=== PATIENT | male | born 1995 | race Caucasian/White ===

== ENCOUNTER 2019-01-27 10:02 | Emergency (ER) | payer OTHER ==
--- NOTE | 2019-01-27 10:44 | ED ---
General Adult HPI - General Chief complaint: Skin/Abscess/Foreign Body Stated complaint: Red/swelling Lt underarm Time Seen by Provider: 01/27/19 10:18 Source: patient Mode of arrival: ambulatory Limitations: no limitations - History of Present Illness Initial comments: Patient is a 23-year-old male presenting to emergency Department with a chief complaint of left arm. Infection. Patient reports it initially started off as a zit on his left armpit and has gradually progressed in size over the past 2 days. Patient reports he has developed tenderness to palpation and reports discharge. Patient reports erythema measuring approximately 3 cm x 4 cm. Patient reports he saw medical professional yesterday who prescribed him Bactrim. Patient is a very taken to doses of the Bactrim but reports the pain is not subsiding which is the primary reason he is here. Patient denies any fever, nausea or vomiting. - Related Data Previous Rx's Medication Instructions Recorded Cephalexin [Keflex] 500 mg PO Q6HR #40 cap 01/27/19 Allergies Allergy/AdvReac Type Severity Reaction Status Date / Time No Known Allergies Allergy Verified 01/27/19 10:38 Review of Systems ROS Statement: Those systems with pertinent positive or pertinent negative responses have been documented in the HPI. ROS Other: All systems not noted in ROS Statement are negative. Past Medical History Past Medical History: No Reported History History of Any Multi-Drug Resistant Organisms: None Reported Past Surgical History: No Surgical Hx Reported Past Psychological History: No Psychological Hx Reported Smoking Status: Current every day smoker Past Alcohol Use History: Occasional Past Drug Use History: None Reported General Exam Limitations: no limitations General appearance: alert, in no apparent distress Head exam: Present: atraumatic, normocephalic, normal inspection Eye exam: Present: normal appearance, PERRL, EOMI Pupils: Present: normal accommodation ENT exam: Present: normal exam, mucous membranes moist, normal external ear exam Neck exam: Present: normal inspection, full ROM Respiratory exam: Present: normal lung sounds bilaterally Cardiovascular Exam: Present: regular rate, normal rhythm, normal heart sounds GI/Abdominal exam: Present: soft, normal bowel sounds Extremities exam: Present: full ROM, normal capillary refill, other (+2 ulnar radial pulses.). Absent: normal inspection (3 cm x 5 cm induration at the left axilla but no fluctuance. 2 cm x 4 cm erythema. No discharge noted. Lesion appears warm to the touch.) Back exam: Present: normal inspection, full ROM Neurological exam: Present: alert, oriented X3 Psychiatric exam: Present: normal affect, normal mood Skin exam: Present: warm, intact, normal color Course Vital Signs 01/27/19 10:13 Temperature 98.1 F Pulse Rate 78 Respiratory 18 Rate Blood Pressure 127/84 O2 Sat by Pulse 97 Oximetry Medical Decision Making - Medical Decision Making patient is a 23-year-old male presents emergency department with a chief complaint of left armpit infection. I did not feel any fluctuance so no incision and drainage is warranted at this time. Patient has only taken 2 doses of the Bactrim so advised him to continue taking the medication. Keflex will also be added to the treatment plan. Patient was given Toradol in the ED. Karyn ent will be given a Tylenol 3 starter pack. Patient advised to follow-up with primary care. Strict return parameters were thoroughly discussed patient was understanding and agreeable. Case discussed with physician. Disposition Clinical Impression: Abscess of axilla, left Disposition: HOME SELF-CARE Condition: Stable Instructions (If sedation given, give patient instructions): Abscess (ED) Additional Instructions: Please take prescribed medication as directed. Please follow-up with primary care. Please return to emergency department if symptoms worsen. Alternate between Tylenol and ibuprofen for pain control. Prescriptions: Cephalexin [Keflex] 500 mg PO Q6HR #40 cap Is patient prescribed a controlled substance at d/c from ED?: No Referrals: Armand Monahan MD [Primary Care Provider] - 1-2 days Time of Disposition: 10:44
[2019-01-27] MEDS: ACET/COD 300 MG/30 MG STARTER PACK 6 TAB BTL PO STA ×2 (11:00→11:07)
[2019-01-27] MEDS: KETOROLAC 30 MG/ML 1 ML VIAL IM STA ×2 (11:07→11:17)
[2019-01-27 11:27] VITALS: BP 122/78; PULSE 76; RESP 12; TEMP 98.2
== END 2019-01-27 11:17 | disposition home or self-care (01) ==
LOC: EC 10:02
DX: L02.412 Cutaneous abscess of left axilla (principal); F17.200 Nicotine dependence, unspecified, uncomplicated
CPT/HCPCS: 99283; 96372; J1885

== ENCOUNTER 2019-01-29 00:07 | Emergency (ER) | payer OTHER ==
[2019-01-29] MEDS ORDERED: LIDOCAINE 1% INJ 10MG/ML (20 ML MDV) SQ ONE (01:25)
--- NOTE | 2019-01-29 02:10 | ED ---
General Adult HPI - General Chief complaint: Skin/Abscess/Foreign Body Stated complaint: Abscess on arm Time Seen by Provider: 01/29/19 00:58 Source: patient, RN notes reviewed Mode of arrival: ambulatory Limitations: no limitations - History of Present Illness Initial comments: 23-year-old male presents to the emergency department for a chief complaint of abscess in the left axilla. Patient states this started 5 days ago. States he was seen in the emergency department and given Keflex and Bactrim but it was not incised and drained at that time due to no fluctuance. Denies fevers or chills. States it seems to be getting somewhat better but is still very painful. He did try to apply Epsom salts earlier today but has not been doing warm compr esses otherwise. Patient has no other complaints at this time including shortness of breath, chest pain, abdominal pain, nausea or vomiting, headache, or visual changes. - Related Data Home Medications Medication Instructions Recorded Confirmed Sulfamethox-Tmp 800-160Mg [Bactrim 1 tab PO Q12HR 01/27/19 01/29/19 DS 800-160 mg] Previous Rx's Medication Instructions Recorded Acetaminophen Tab [Tylenol Tab] 500 mg PO Q4H #30 tablet 01/27/19 Cephalexin [Keflex] 500 mg PO Q6HR #40 cap 01/27/19 Ibuprofen [Motrin] 800 mg PO Q6HR #30 tab 01/27/19 Allergies Allergy/AdvReac Type Severity Reaction Status Date / Time No Known Allergies Allergy Verified 01/27/19 10:38 Review of Systems ROS Statement: Those systems with pertinent positive or pertinent negative responses have been documented in the HPI. ROS Other: All systems not noted in ROS Statement are negative. Past Medical History Past Medical History: No Reported History History of Any Multi-Drug Resistant Organisms: None Reported Past Surgical History: No Surgical Hx Reported Past Psychological History: No Psychological Hx Reported Smoking Status: Current every day smoker Past Alcohol Use History: Occasional Past Drug Use History: None Reported General Exam Limitations: no limitations General appearance: alert, in no apparent distress Head exam: Present: atraumatic, normocephalic, normal inspection Eye exam: Present: normal appearance, PERRL, EOMI. Absent: scleral icterus, conjunctival injection, periorbital swelling ENT exam: Present: normal exam, mucous membranes moist Neck exam: Present: normal inspection, full ROM. Absent: tenderness, meningismus, lymphadenopathy Respiratory exam: Present: normal lung sounds bilaterally. Absent: respiratory distress, wheezes, rales, rhonchi, stridor Cardiovascular Exam: Present: regular rate, normal rhythm, normal heart sounds. Absent: systolic murmur, diastolic murmur, rubs, gallop, clicks Psychiatric exam: Present: normal affect, normal mood Skin exam: Present: other (There is a 4 cm x 4 cm abscess noted in the left axilla with fluctuance and surrounding erythema, no evidence of cellulitis.) Course Vital Signs 01/29/19 00:27 Temperature 98.8 F Pulse Rate 91 Respiratory 20 Rate Blood Pressure 122/85 Procedures - Incision & Drainage Consent Obtained: verbal consent Indication: Abscess Site: other (Left axilla) Size (cm): 4 Anesthetic Used: lidocaine 1% Amount (mLs): 4 I&D Cleaning Method: Chloroprep, Betadine Sterile Field Used?: Yes Scalpel Used: #11 I&D Drainage Obtained: Pus (Copious amount. The material) Packing: Iodoform Patient Tolerated Procedure: well, no complications Medical Decision Making - Medical Decision Making 23-year-old male presents to the emergency department for a chief complaint of abscess of the left axilla 5 days. Patient has been taking Keflex and Bactrim with some improvement however still has pain. On exam patient has a 4 cm x 4 cm abscess. Fluctuance noted. Area was cleaned and incision and drainage was performed. Purulent material was expelled. Packing was applied. Patient will continue antibiotics outpatient. No fevers. Discussed applying warm compresses and removing the iodoform in 2 days. Discussed that if he is not starting to improve in the next 24-48 hours he needs to return again to the emergency d etermine. Disposition Clinical Impression: Abscess of axilla, left Disposition: HOME SELF-CARE Condition: Good Instructions (If sedation given, give patient instructions): Abscess Incision and Drainage (ED), Abscess (ED), Warm Compress or Soak (ED) Additional Instructions: Please do warm compresses 20 minutes every few hours. Please remove the packing in 2 days by pulling gently. Continue to take your antibiotic. If your symptoms are not starting to improve within 24-48 hours you need to return again to the emergency department. If you have worsening symptoms return to the emergency department as well. Otherwise follow-up with primary care in 1-2 days. Is patient prescribed a controlled substance at d/c from ED?: No Referrals: Armand Monahan MD [Primary Care Provider] - 1-2 days Time of Disposition: 02:08
[2019-01-29] MEDS ORDERED: KETOROLAC 30 MG/ML 1 ML VIAL IM STA (02:12)
[2019-01-29 02:51] VITALS: BP 118/78; PULSE 84; RESP 18; TEMP 98.7
== END 2019-01-29 02:39 | disposition home or self-care (01) ==
LOC: EC 00:07
DX: L02.412 Cutaneous abscess of left axilla (principal); F17.200 Nicotine dependence, unspecified, uncomplicated
CPT/HCPCS: 10060; 96372; 99283